=== PATIENT | male | born 1970 | race Caucasian/White ===

== ENCOUNTER 2022-04-16 07:46 | Outpatient (CLI) | payer BC, SELFPAY ==
[2022-04-16 11:39] LABS: Albumin* 4.1 g/dL (3.3-5.0); Chloride* 106 mmol/L (96-114); Potassium* 4.9 mmol/L (3.6-5.1); Sodium* 139 mmol/L (135-149)
[2022-04-16 11:41] LABS: Cholesterol* 233 mg/dL (90-199)
[2022-04-16 11:42] LABS: Alanine Aminotransferase* 31 U/L (4-50); Alkaline Phosphatase* 86 U/L (40-150); Aspartate Amino Transferase* 26 U/L (12-35); Bilirubin Total* 0.9 mg/dL (0.1-1.5); Blood Urea Nitrogen* 14 mg/dL (7-30); Calcium* 9.2 mg/dL (8.4-10.6); Carbon Dioxide* 27 mmol/L (20-32); Estimated Glomerular Filt Rate 90 ml/min; Glucose* 100 mg/dL (60-115); Triglycerides* 338 mg/dL (40-149)
[2022-04-16 11:43] LABS: HDL Cholesterol* 40 mg/dL (>=40); LDL Cholesterol Calculated 125 mg/dL (<100)
[2022-04-16 12:08] LABS: PSA Screen* 0.99 ng/mL (0.10-4.00)
== END 2022-04-16 07:47 | disposition home or self-care (01) ==
PROVIDERS: PCP Family Medicine; Visit Provider Family Medicine
DX: Z00.00 Encounter for general adult medical examination without abnormal findings (principal); E78.5 Hyperlipidemia, unspecified; I10 Essential (primary) hypertension; N52.9 Male erectile dysfunction, unspecified; Z12.5 Encounter for screening for malignant neoplasm of prostate
CPT/HCPCS: 80053; 80061; 84153

== ENCOUNTER 2022-05-08 09:18 | Outpatient (CLI) | payer BC, SELFPAY ==
[2022-05-08 13:11] LABS: Albumin* 4.4 g/dL (3.3-5.0); Chloride* 104 mmol/L (96-114)
[2022-05-08 13:12] LABS: Potassium* 4.7 mmol/L (3.6-5.1); Sodium* 138 mmol/L (135-149)
[2022-05-08 13:14] LABS: Bilirubin Total* 1.5 mg/dL (0.1-1.5); Blood Urea Nitrogen* 13 mg/dL (7-30); Carbon Dioxide* 25 mmol/L (20-32); Cholesterol* 252 mg/dL (90-199); Estimated Glomerular Filt Rate 90 ml/min; Total Protein* 7.3 g/dL (6.0-8.3)
[2022-05-08 13:15] LABS: Alanine Aminotransferase* 34 U/L (4-50); Alkaline Phosphatase* 82 U/L (40-150); Aspartate Amino Transferase* 28 U/L (12-35); Calcium* 9.4 mg/dL (8.4-10.6); Glucose* 106 mg/dL (60-115); HDL Cholesterol* 36 mg/dL (>=40); LDL Cholesterol Calculated 120 mg/dL (<100)
[2022-05-08 13:28] LABS: Triglycerides* 478 mg/dL (40-149)
== END 2022-05-08 09:19 | disposition home or self-care (01) ==
LOC: NFLDREF 09:18
PROVIDERS: PCP Family Medicine; Visit Provider Family Medicine
DX: E78.5 Hyperlipidemia, unspecified; I10 Essential (primary) hypertension; Z12.5 Encounter for screening for malignant neoplasm of prostate
CPT/HCPCS: 80053; 80061; 84153

== ENCOUNTER 2023-04-18 08:03 | Outpatient (CLI) | payer BC, SELFPAY | END 2023-04-18 08:04 | disposition home or self-care (01) | LOC: NFLDREF 04-19 09:49 | PROVIDERS: PCP Family Medicine; Referring Provider Family Medicine; Visit Provider Family Medicine | DX: Z00.00 Encounter for general adult medical examination without abnormal findings (principal); E78.5 Hyperlipidemia, unspecified; I10 Essential (primary) hypertension; Z12.5 Encounter for screening for malignant neoplasm of prostate | CPT/HCPCS: 80053; 80061; 84153 ==

== ENCOUNTER 2023-06-04 07:49 | Outpatient (CLI) | payer BC, SELFPAY | END 2023-06-04 07:50 | disposition home or self-care (01) | LOC: NFLDREF 12:26 | PROVIDERS: PCP Family Medicine; Referring Provider Family Medicine; Visit Provider Family Medicine | DX: E78.5 Hyperlipidemia, unspecified (principal) | CPT/HCPCS: 80061 ==

== ENCOUNTER 2024-06-18 14:04 | Outpatient (CLI) | payer BC, SELFPAY | END 2024-06-18 14:05 | disposition home or self-care (01) | PROVIDERS: PCP Family Medicine; Visit Provider Family Medicine | DX: E78.5 Hyperlipidemia, unspecified (principal); I10 Essential (primary) hypertension; Z80.42 Family history of malignant neoplasm of prostate; Z12.5 Encounter for screening for malignant neoplasm of prostate | CPT/HCPCS: 80053; 80061; G0103 ==

== ENCOUNTER 2025-06-24 08:19 | Outpatient (CLI) | payer BC, SELFPAY | END 2025-06-24 08:20 | disposition home or self-care (01) | LOC: NFLDREF 06-30 12:25 | PROVIDERS: PCP Family Medicine; Referring Provider Family Medicine; Visit Provider Family Medicine | DX: Z12.5 Encounter for screening for malignant neoplasm of prostate (principal); I10 Essential (primary) hypertension; E78.2 Mixed hyperlipidemia | CPT/HCPCS: 80053; 80061; G0103 ==